=== PATIENT | male | born 1950 | race Caucasian/White ===

== ENCOUNTER 2018-10-14 07:03 | Day surgery (SDC) | payer BC, MEDICARE, OTHER ==
[~2018-10-14] VITALS: Ht 182.9 cm; Wt 99.9 kg
[2018-10-14] VITALS (428 sets, daily range): BP systolic 102–141; BP diastolic 63–668; PULSE 61–85; TEMP 97.5–98.5; O2SAT 94–100
[2018-10-14] MEDS ORDERED: NORVASC 5MG5 MG/TAB PO (08:04)
[2018-10-14] MEDS ORDERED: ZESTRIL 20MG TA20 MG PO (08:04)
[2018-10-14] MEDS ORDERED: PLAVIX 75MG TAB75 MG PO (08:05)
[2018-10-14] MEDS ORDERED: ZOCOR 20MG20 MG PO (08:05)
[2018-10-14] MEDS ORDERED: ASPIRIN 81M81 MG/TA2 PO (08:06)
[2018-10-14] MEDS ORDERED: VITAMIN D31000 I1 PO (08:06)
[2018-10-14] MEDS ORDERED: METHOTREXA2.5 MG/TAB PO (08:07)
[2018-10-14 08:12] LABS: HEMATOCRIT 42.9 % (42.0-52.0); HEMOGLOBIN 15.3 g/dl (13.5-18.0); MEAN CELL VOLUME 101 fl (80.0-100.0); MEAN CORPUSCULAR HEMOGLOBIN 36 pg (27.0-31.0); MEAN CORPUSCULAR HGB CONC 36 g/dl (33.0-37.0); MEAN PLATELET VOLUME 8.7 fl (7.4-10.4); PLATELET COUNT 169 K/mm3 (130-400); RED BLOOD COUNT 4.25 M/mm3 (4.20-5.60); REDCELL DISTRIBUTION WIDTH-CV 13.2 % (11.5-14.5)
[2018-10-14 08:18] LABS: PROTHROMBIN TIME 11.8 SECONDS (9.7-12.8)
[2018-10-14 08:24] LABS: CALCIUM 8.9 mg/dL (8.4-10.2); CREATININE, serum 0.96 mg/dL (0.66-1.25); POTASSIUM 4.6 mmol/L (3.4-5.0)
[2018-10-15] VITALS (473 sets, daily range): BP systolic 101–123; BP diastolic 59–75; PULSE 63–68; TEMP 98.3–98.6; O2SAT 88–100
[2018-10-15 03:35] LABS: BASO % 0.2 % (0.0-2.0); EOS # 0.1 (0.0-0.7); EOS % 2.1 % (0-4.0); GRAN % 69.2 % (42.2-75.2); HEMATOCRIT 38.4 % (42.0-52.0); HEMOGLOBIN 13.6 g/dl (13.5-18.0); LYMPH # 1.1 (1.2-3.4); LYMPH % 18.6 % (20.0-51.0); MEAN CELL VOLUME 100 fl (80.0-100.0); MEAN CORPUSCULAR HEMOGLOBIN 35 pg (27.0-31.0); MEAN CORPUSCULAR HGB CONC 35 g/dl (33.0-37.0); MEAN PLATELET VOLUME 8.4 fl (7.4-10.4); MONO # 0.5 (0.1-0.6); MONO % 9.5 % (1.7-9.3); PLATELET COUNT 142 K/mm3 (130-400); RED BLOOD COUNT 3.84 M/mm3 (4.20-5.60); REDCELL DISTRIBUTION WIDTH-CV 13.1 % (11.5-14.5)
[2018-10-15 03:46] LABS: CALCIUM 8.2 mg/dL (8.4-10.2); CREATININE, serum 0.94 mg/dL (0.66-1.25); POTASSIUM 4.3 mmol/L (3.4-5.0)
[2018-10-15] MEDS ORDERED: ZOCOR 40MG40 MG PO (09:02)
[2018-10-15] MEDS ORDERED: IMDUR 30MG30 MG/TAB PO (09:02)
== END 2018-10-15 10:00 | disposition home or self-care (01) ==
LOC: COL.CAR 07:03 → ICU 12:25 → COL.CAR 10-15 10:00
PROVIDERS: Internal Medicine Cardiovascular Disease; Nurse Practitioner
DX: I25.119 Atherosclerotic heart disease of native coronary artery with unspecified angina pectoris (principal); I10 Essential (primary) hypertension; K21.9 Gastro-esophageal reflux disease without esophagitis; E78.5 Hyperlipidemia, unspecified; L40.50 Arthropathic psoriasis, unspecified; Z85.828 Personal history of other malignant neoplasm of skin; Z95.5 Presence of coronary angioplasty implant and graft; Z79.02 Long term (current) use of antithrombotics/antiplatelets; Z79.82 Long term (current) use of aspirin; Z79.899 Other long term (current) drug therapy; F17.210 Nicotine dependence, cigarettes, uncomplicated; F17.220 Nicotine dependence, chewing tobacco, uncomplicated
CPT/HCPCS: OP; C9600; J0583; J1644; J2250; J3010; Q9967

== ENCOUNTER 2018-11-28 12:03 | Outpatient (RCR) | payer BC, MEDICARE, OTHER ==
[~2018-11-28 12:03] MED LIST: ASPIRIN 81M81 MG/TA2 PO; IMDUR 30MG30 MG/TAB PO; METHOTREXA2.5 MG/TAB PO; NORVASC 5MG5 MG/TAB PO; PLAVIX 75MG TAB75 MG PO; VITAMIN D31000 I1 PO; ZESTRIL 20MG TA20 MG PO; ZOCOR 20MG20 MG PO; ZOCOR 40MG40 MG PO
== END 2018-12-01 13:00 | disposition home or self-care (01) ==
LOC: COL.CR 12:03
DX: Z48.812 Encounter for surgical aftercare following surgery on the circulatory system (principal); Z95.5 Presence of coronary angioplasty implant and graft